=== PATIENT | female | born 1970 | race Caucasian/White ===

== ENCOUNTER 2020-05-04 09:17 | Outpatient (REF) | payer OTHER, SELFPAY ==
--- NOTE | 2020-05-04 | FL_ITS ---
EXAMINATION: FLUOROSCOPY UPPER GI WITH AIR CLINICAL INFORMATION: Preop surgical weight loss COMPARISON: None. TECHNIQUE: An upper GI examination is performed under fluoroscopic observation with digital image acquisition. The patient drank effervescent granules, thick and thin barium consistencies without difficulty. FINDINGS: The esophagus is normal in motility and morphology. Normal caliber. No hiatal hernia. No spontaneous gastroesophageal reflux. The stomach demonstrates normal motility with normal rugal folds. The duodenal bulb and proximal duodenum demonstrate no evidence of ulcer, mass lesion, or displacement. 16 IMAGES 98.650 mGy TOTAL DOSE 19.436 Gycm2 1.3 MINUTES IMPRESSION: Normal UGI. Normal esophageal and gastric motility. No hiatal hernia.
--- NOTE | 2020-05-04 | US_ITS ---
EXAMINATION: US COMPLETE ABDOMEN WITH LIVER ELASTOGRAPHY CLINICAL INFORMATION: Obesity COMPARISON: None. TECHNIQUE: Real-time imaging of the abdominal viscera. Noninvasive ultrasound liver fibrosis assessment is performed using Luli ElastPQ point quantification shear wave elastography (pSWE) with a 5 MHz transducer. Multiple elastography samples are obtained. FINDINGS: PANCREAS: Normal. ABDOMINAL AORTA: The proximal, middle, and distal aortic segments are normal in caliber. INFERIOR VENA CAVA: Visualized portions are normal. LIVER: Echotexture is increased probably representing fatty infiltration. There is a focal hypoechoic area adjacent to the gallbladder, a characteristic location of focal fatty sparing. No other focal liver lesion is seen. Liver is normal in contour. The liver is slightly enlarged. The right lobe measures 19 cm in length. The left lobe measures 13 cm in length. The main portal vein is patent with appropriate hepatopedal flow. Shear wave elastography provides a median stiffness of 1.4 m/s (reference: normal median stiffness is 0.81 - 1.22 m/s). The IQR/median stiffness to assess sampling precision is 0.1 (reference: optimal IQR/median stiffness is under 0.3). GALLBLADDER: Normal. The gallbladder is physiologically distended without evidence of stones, sludge, polyps, wall thickening or pericholecystic fluid. COMMON BILE DUCT: Normal in caliber measuring 0.3 cm in diameter. RIGHT KIDNEY: Normal. No hydronephrosis. No renal calculi or focal parenchymal lesions. The kidney measures 13 cm in maximum dimension. LEFT KIDNEY: Normal. No hydronephrosis. No renal calculi or focal parenchymal lesions. The kidney measures 13.6 cm in maximum dimension. SPLEEN: Normal. The spleen measures 11.6 cm in maximum dimension. FREE FLUID: None. IMPRESSION: 1. Impression: Enlarged echogenic liver probably representing fatty infiltration. 2. Elastography: Metavir score F2 to F3 suggestive of [id number] increased risk of developing liver fibrosis.
== END 2020-05-04 09:18 | disposition home or self-care (01) ==
LOC: HO.US 09:17
PROVIDERS: PCP Internal Medicine; Visit Provider Surgery
DX: Z01.818 Encounter for other preprocedural examination (principal); E66.01 Morbid (severe) obesity due to excess calories; K21.9 Gastro-esophageal reflux disease without esophagitis
CPT/HCPCS: 74246; 76705; 76981

== ENCOUNTER → 2020-05-06 11:29 | Outpatient (REF) | payer OTHER, SELFPAY ==
--- NOTE | 2020-05-06 11:30 | CA_ITS ---
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 The visually estimated ejection fraction is between 60-65%. - No obvious valvular pathology seen on this study. Findings Left Ventricle Normal left ventricular cavity size. There is mildly increased left ventricular wall thickness. The left ventricular systolic function is normal. The visually estimated ejection fraction is between 60-65%. There is no evidence of regional wall motion abnormalities. E/E prime ratio is between 8 and 15 consistent with indeterminate filling pressures. Evidence suggests grade I (mild) diastolic dysfunction. Right Ventricle Normal right ventricular cavity size and systolic function. Atria The left atrium is normal in size. The right atrium is normal in size. Aortic Valve There is a normal trileaflet aortic valve. There is no aortic valve stenosis. There is no aortic valve regurgitation. Mitral Valve The mitral valve appears normal. There is trace mitral valve regurgitation. There is no mitral valve stenosis. Pulmonic Valve The pulmonic valve was not well visualized. Tricuspid Valve Normal tricuspid valve structure. There is trace tricuspid valve regurgitation. The pulmonary artery systolic pressure is normal. Great Vessels The aortic annulus, sinuses of valsalva, and asc aorta are normal in size. Venous The inferior vena cava is normal in size and collapses greater than 50% with inspiration. Pericardium/Pleural There is no evidence of pericardial effusion. Prior Study Comparison No prior study available for comparison. Recommendations, Care & Conclusions No obvious valvular pathology seen on this study. Measurements 2D Linear Measurements IVSd: 1.31 0.6-0.9/0.6-1.0 cm LVIDd: 3.27 3.9-5.3/4.2-5.9 cm LVIDd Index: 1.63 2.4-3.2/2.2-3.1 cm/m2 LVIDs: 2.22 2.0-3.6 cm LVPWd: 1.25 0.7-1.1 cm Ao Root: 2.90 2.1-3.5 cm LA Diam: 3.90 2.7-3.8/3.0-4.0 cm LAIDs Index: 1.94 1.5-2.3 cm/m2 LV Mass: 169.72 67-162/88-224 g LV Mass Index: 84.44 43-95/49-115 g/m2 LVOT Diam: 2.00 3.0+(-)1.3 cm 2D Systolic Function EF 4C: 61.00 >55% EF 2C: 67.80 >55% Mitral Valve MV Pk E: 0.70 MV PK A: 0.62 MV Decel Time: 155.00 E/A: 1.10 E'Lateral: 5.03 E'Medial: 5.80 E/E' Med: 12.00 E/E' Lat: 13.90 PHT: 45.00 MVA PHT: 4.89 Decel Rapides: 4.51 Aortic Valve AoV Pk Matthew: 1.78 AoV Mn Matthew: 1.23 AoV VTI: 0.33 AoV Pk Grad: 13.00 Aov Mn Grad: 7.00 CURT Cont.VTI: 1.85 LVOT LVOT Pk Matthew: 1.08 LVOT Mn Matthew: 0.64 LVOT VTI: 0.19 LVOT Pk Grad: 5.00 LVOT Mn Grad: 2.00 LVOT Diam: 2.00 LVOT Area: 3.14 Diastolic Function MV Pk E: 0.70 MV Pk A: 0.62 E/A: 1.10 E'Medial: 5.80 E/E' Med: 12.00 E' Laterial: 5.03 E/E' Lat: 13.90 Tricuspid Valve TR Pk Matthew: 1.56 TR Pk Grad: 10.00 Great Vessels Aorta Ao Root-2D: 2.90 2.0-3.7 cm Ao Asc: 3.40 2.1-3.4 cm Pulmonary Valve PV Pk Matthew: 1.28 Peak PV Grad: 7.00 Updated in Other Vendor System with Status of Final Malik Eastman MD electronically signed on 05/08/2020 1:14:31 PM with status of Final
== END ==
LOC: HO.CARD 11:29
PROVIDERS: Visit Provider Surgery
DX: Z01.818 Encounter for other preprocedural examination (principal); I10 Essential (primary) hypertension
CPT/HCPCS: 93306

== ENCOUNTER → 2020-05-25 08:26 | Outpatient (BNVA) | payer OTHER, SELFPAY | PROVIDERS: PCP Internal Medicine; Visit Provider Surgery | DX: Z76.89 Persons encountering health services in other specified circumstances (principal) ==

== ENCOUNTER → 2020-07-01 08:01 | Outpatient (BNVA) | payer OTHER, SELFPAY | PROVIDERS: PCP Internal Medicine; Referring Provider Internal Medicine; Visit Provider Surgery | DX: Z76.89 Persons encountering health services in other specified circumstances (principal) ==

== ENCOUNTER → 2020-07-07 08:25 | Outpatient (BNVA) | payer OTHER, SELFPAY | PROVIDERS: PCP Internal Medicine; Visit Provider Dietitian, Registered | DX: Z76.89 Persons encountering health services in other specified circumstances (principal) ==

== ENCOUNTER → 2020-07-25 08:58 | Outpatient (BNVA) | payer OTHER, SELFPAY | PROVIDERS: PCP Internal Medicine; Visit Provider Surgery | DX: Z76.89 Persons encountering health services in other specified circumstances (principal) ==

== ENCOUNTER → 2020-08-02 09:09 | Outpatient (REF) | payer OTHER, SELFPAY ==
--- NOTE | 2020-08-02 09:30 | CA_ITS ---
Acquisition Time: 2020-08-02 10:24:51 Total Exercise Time: 00:06:51 Test Indications: Abnormal ECG Medications: Protocol: HALLIE Max HR: 148 BPM 86% of Pred: 172 BPM Max BP: 132/066 mmHG Max Work Load: 7.9 METS Exercise stress test using Hallie protocol, total of 6 min 51 sec. METS 7.90, TAPHR up to 86%. Patient denies any anginal symptoms. EKG without any arrhythmias, no ischemic changes seen at peak exercise or in recovery. Normotensive response to exercise. Test reviewed with Dr. Eastman. Referred By: Harshal Quintero Overread By: Augustina Alamo
== END ==
LOC: HO.CARD 09:09
PROVIDERS: Visit Provider Surgery
DX: Z01.818 Encounter for other preprocedural examination (principal); R06.02 Shortness of breath; I10 Essential (primary) hypertension
CPT/HCPCS: 93017

== ENCOUNTER → 2020-08-04 08:09 | Outpatient (BNVA) | payer OTHER, SELFPAY | PROVIDERS: PCP Internal Medicine; Visit Provider Dietitian, Registered | DX: Z76.89 Persons encountering health services in other specified circumstances (principal) ==

== ENCOUNTER → 2020-08-19 08:13 | Outpatient (BNVA) | payer OTHER, SELFPAY | PROVIDERS: PCP Internal Medicine; Visit Provider Surgery ==

== ENCOUNTER → 2020-09-01 08:15 | Outpatient (BNVA) | payer OTHER, SELFPAY | PROVIDERS: PCP Internal Medicine; Visit Provider Dietitian, Registered ==

== ENCOUNTER 2020-09-08 13:53 | Outpatient (REF) | payer OTHER, SELFPAY ==
[2020-09-08 15:25] LABS: Vitamin B12 384 pg/mL (200-900)
[2020-09-09 08:12] LABS: Lyme Abs Screen <0.90 index
== END 2020-09-08 13:54 | disposition home or self-care (01) ==
LOC: HO.LAB 13:53
PROVIDERS: PCP Internal Medicine; Visit Provider Psychiatry & Neurology Neurology
DX: G31.84 Mild cognitive impairment of uncertain or unknown etiology (principal)
CPT/HCPCS: 36415; 82607; 86618

== ENCOUNTER 2020-09-09 11:55 | Outpatient (REF) | payer OTHER, SELFPAY ==
--- NOTE | ~2020-09-09 | XR_ITS ---
EXAMINATION: XR CHEST CLINICAL INFORMATION: Morbid severe obesity due to excessive calories COMPARISON: None TECHNIQUE: 2 views of the chest were obtained. FINDINGS: No significant abnormality is noted involving the heart, lungs, mediastinum, bony thorax or soft tissues. XR/XR chest 2V IMPRESSION: Unremarkable chest examination.
[2020-09-09 12:45] LABS: MANUAL DIFF FLAG NO
[2020-09-09 12:52] LABS: Basophils Percent Auto 0.5 % (0-2); Eosinophils Absolute Auto 0.2 X10*3/uL (0.0-0.4); Eosinophils Percent Auto 2.4 % (0-4); Hematocrit 37.5 % (37-47); Hemoglobin 12.3 g/dl (12.0-16.0); Imm Gran Abs Auto 0.03 X10*3/uL (0.00-0.03); Imm Gran Pct Auto 0.5 % (0.0-0.4); Lymphocytes Absolute Auto 2.2 X10*3/uL (1.2-4.9); Lymphocytes Percent Auto 32.4 % (20-40); Mean Corpuscular HGB Conc 32.8 g/dl (31.0-35.0); Mean Corpuscular Hemoglobin 28.3 pg (27.0-33.0); Mean Corpuscular Volume 86.4 fL (80-98); Mean Platelet Volume 8.8 fL (9.4-12.3); Monocytes Absolute Auto 0.5 X10*3/uL (0.1-1.2); Monocytes Percent Auto 6.9 % (2-11); Neutrophils Absolute Auto 3.8 X10*3/uL (2.0-8.3); Neutrophils Percent Auto 57.3 % (45-73); Platelet Count 238 X10*3/uL (160-400); Red Blood Count 4.34 X10*6/uL (4.20-5.50); Red Cell Distribution Width 13.3 % (11.0-16.0); White Blood Count 6.6 X10*3/uL (4.8-10.8)
[2020-09-09 13:33] LABS: Alanine Aminotransferase 19 U/L (0-31); Albumin Level 4.4 g/dL (3.5-5.0); Alkaline Phosphatase 72 U/L (39-117); Anion Gap 13 (12-20); Aspartate Amino Transferase 14 U/L (5-31); Bilirubin Total 0.4 mg/dL (0.0-1.0); Blood Urea Nitrogen 18 mg/dL (9-16); C Reactive Protein 0.18 mg/dL (< or = 0.50); Calcium 9.5 mg/dL (8.4-10.2); Carbon Dioxide 27 mmol/L (22-29); Chloride 105 mmol/L (96-108); Cholesterol 218 mg/dL; Estimated Glomerular Filt Rate 50; Glucose Random 72 mg/dL (60-115); HDL Cholesterol 41 mg/dL; LDL Cholesterol Calculated 149 mg/dl; Potassium 4.7 mmol/L (3.3-5.1); Sodium 140 mmol/L (135-145); Total Protein 7.3 g/dL (6.5-8.0); Triglycerides 143 mg/dL
[2020-09-09 13:41] LABS: Estimated Average Glucose 192 mg/dL; Hemoglobin A1c % 8.3 %
[2020-09-09 13:57] LABS: TSH reflex Free T4 1.01 uIU/mL (0.32-4.0); Vitamin D 25-OH Total 23.1 ng/mL (>30)
[2020-09-09 14:01] LABS: Folate 14.2 ng/mL (> or = 4.0); Vitamin B12 393 pg/mL (200-900)
[2020-09-09 14:20] LABS: Ferritin 47 ng/mL (10-250)
[2020-09-10 05:57] LABS: Insulin Level Total 15.9 uIU/mL
[2020-09-12 16:47] LABS: Calcium (PTHI) 9.8 mg/dL (8.6-10.2); PTHI 65 pg/mL (14-64)
[2020-09-13 12:46] LABS: Zinc 70 mcg/dL (60-130)
[2020-09-14 21:06] LABS: Vitamin A 51 mcg/dL (38-98)
[2020-09-15 06:06] LABS: Vitamin B1 15 nmol/L (8-30)
== END 2020-09-09 11:56 | disposition home or self-care (01) ==
LOC: HO.LAB 11:55
PROVIDERS: PCP Surgery; Visit Provider Surgery
DX: E66.01 Morbid (severe) obesity due to excess calories (principal); E78.5 Hyperlipidemia, unspecified; I51.7 Cardiomegaly
CPT/HCPCS: 36415; 71046; 80053; 80061; 82306; 82607; 82728; 82746; 83036; 83525; 83970; 84425; 84443; 84590; 84630; 85025; 86140

== ENCOUNTER → 2020-09-19 08:35 | Outpatient (BNVA) | payer OTHER, SELFPAY | PROVIDERS: PCP Surgery; Visit Provider Surgery ==

== ENCOUNTER → 2020-09-22 08:20 | Outpatient (BNVA) | payer OTHER, SELFPAY | PROVIDERS: PCP Surgery; Visit Provider Dietitian, Registered ==

== ENCOUNTER → 2020-10-12 08:09 | Outpatient (BNVA) | payer OTHER, SELFPAY | PROVIDERS: Visit Provider Surgery ==

== ENCOUNTER → 2020-10-13 08:19 | Outpatient (BNVA) | payer OTHER, SELFPAY | PROVIDERS: Visit Provider Dietitian, Registered ==

== ENCOUNTER → 2020-10-31 08:09 | Outpatient (BNVA) | payer OTHER, SELFPAY | PROVIDERS: Visit Provider Surgery ==

== ENCOUNTER 2020-12-01 10:46 | Outpatient (REF) | payer OTHER, SELFPAY ==
[2020-12-01 13:21] LABS: Estimated Average Glucose 160 mg/dL; Hemoglobin A1c % 7.2 %
[2020-12-03 14:21] LABS: H Pylori Breath Test NOT DETECTED (NOT DETECTED)
== END 2020-12-01 10:47 | disposition home or self-care (01) ==
LOC: HO.LAB 10:46
PROVIDERS: Physician Assistant; Surgery; Visit Provider Dietitian, Registered
DX: E66.9 Obesity, unspecified (principal); E11.9 Type 2 diabetes mellitus without complications; Z71.3 Dietary counseling and surveillance
CPT/HCPCS: 36415; 83013; 83036; 97803; 99211

== ENCOUNTER 2020-12-13 15:57 | Outpatient (REF) | payer OTHER, SELFPAY ==
[2020-12-14 14:36] LABS: H Pylori Breath Test NOT DETECTED (NOT DETECTED)
== END 2020-12-13 15:58 | disposition home or self-care (01) ==
LOC: HO.LNP 15:57
PROVIDERS: Physician Assistant; Visit Provider Physician Assistant
DX: E66.01 Morbid (severe) obesity due to excess calories (principal)
CPT/HCPCS: 83013; 99211

== ENCOUNTER 2020-12-15 15:35 | Outpatient (REF) | payer OTHER, SELFPAY ==
[2020-12-15 16:04] LABS: Carbon Monoxide 0.4
== END 2020-12-15 15:36 | disposition home or self-care (01) ==
LOC: HO.LAB 15:35
PROVIDERS: Visit Provider Surgery
DX: F17.200 Nicotine dependence, unspecified, uncomplicated (principal)
CPT/HCPCS: 36415

== ENCOUNTER 2020-12-19 16:11 | Outpatient (REF) | payer OTHER, SELFPAY ==
[2020-12-19 16:43] LABS: Carbon Monoxide Refer to POC result
[2020-12-19 17:01] LABS: Carbon Monoxide POC 0.7 %
[2020-12-19 18:29] LABS: Iron 38 mcg/dL (30-160); Percent Iron Saturation 11 % (15-50); Total Iron Binding Capacity 345 mcg/dL (228-428); Unsaturated Iron Binding 307 ug/dL
== END 2020-12-19 16:12 | disposition home or self-care (01) ==
LOC: HO.LAB 16:11
PROVIDERS: Absent Provider Physician Assistant; PCP Internal Medicine; Visit Provider Surgery
DX: F17.200 Nicotine dependence, unspecified, uncomplicated (principal)
CPT/HCPCS: 36415; 83540

== ENCOUNTER → 2020-12-22 13:27 | Outpatient (BNVA) | payer OTHER, SELFPAY | PROVIDERS: PCP Internal Medicine; Visit Provider Surgery ==

== ENCOUNTER → 2020-12-23 08:46 | Outpatient (BNVA) | payer OTHER, SELFPAY | PROVIDERS: PCP Internal Medicine; Visit Provider Physician Assistant | DX: Z13.89 Encounter for screening for other disorder (principal) | CPT/HCPCS: 93005 ==

== ENCOUNTER 2020-12-27 06:15 | Inpatient (IN) | payer OTHER, SELFPAY ==
--- NOTE | 2020-12-23 08:25 | ECG_ITS ---
Test Reason : MORBID OBESITY Blood Pressure : / mmHG Vent. Rate : 069 BPM Atrial Rate : 069 BPM P-R Int : 196 ms QRS Dur : 080 ms QT Int : 414 ms P-R-T Axes : 047 -20 057 degrees QTc Int : 443 ms Normal sinus rhythm Normal ECG No previous ECGs available Referred By: Harshal Quintero Electronically Signed By:NATHALIE NESS
--- NOTE | 2020-12-23 09:33 | HO.ANESPROP2 ---
Documented by User: Manasa Marieney 12/30/20 15:49 HPI - Anesthesia Eval Consult details Narrative: 50yo F for Gastrectomy Sleeve PMFSH Active Problems Active Problems: All Active Problems (Updated 09/19/20 @ 11:12 by Harshal Quintero MD) BMI 37.0-37.9, adult (Acute) Obesity (Acute) Diabetes (Acute) Constipation (Acute) Vitamin B12 deficiency (Acute) Vitamin D deficiency (Acute) Abnormal echocardiogram (Acute) Left ventricular hypertrophy (Acute) Depression (Acute) Hyperlipidemia (Acute) Sleep apnea with use of continuous positive airway pressure (CPAP) (Acute) Non-insulin dependent diabetes mellitus (Acute) Hypotension (Acute) Morbid obesity (Acute) Past Medical History Medical History Abnormal echocardiogram Constipation Depression Diabetes Hyperlipidemia Hypotension Insomnia Liver fibrosis Non-insulin dependent diabetes mellitus Sleep apnea with use of continuous positive airway pressure (CPAP) Steatosis, liver Vitamin B12 deficiency Vitamin D deficiency Family History Family History Father DM (diabetes mellitus) Mother No problems noted. Sister No problems noted. Sister No problems noted. Sister No problems noted. Sister No problems noted. Sister No problems noted. Sister No problems noted. Family history of problems with anesthesia: No Surgical History Surgical History History of wisdom tooth extraction, class II edentulism Hx of carpal tunnel repair Morbid obesity S/P section History of Problems with Anesthesia: No Social History Social History Household Members: Children Housing: House Are you a primary child caregiver to a significant other at home: No (daughter 16 yrs old) Do you presently have visiting nurse or other home services: No Alcohol intake: unknown Patient Tobacco Use Status: Former Tobacco user Quit Date: 11/23 Tobacco use type: Cigarette Cigarettes Per Day: 5 Narrative Narrative: No recent illness >4 mets with regular exercise Meds Allergies Allergy/AdvReac Type Severity Reaction Status Date / Time No Known Allergies Allergy Verified 12/23/20 11:21 Home Medications Medication Instructions Recorded Confirmed Last Taken Type aspirin 81 mg tablet,delayed 81 mg PO DAILY 05/02/20 05/02/20 Unknown History release hydrochlorothiazide 25 mg tablet 25 mg PO DAILY 05/02/20 05/02/20 Unknown History liraglutide 0.6 mg/0.1 mL (18 mg/3 1.2 mg SUBCUT DAILY 05/02/20 05/02/20 Unknown History mL) subcutaneous pen injector metformin 1,000 mg tablet 1,000 mg PO DAILY 05/02/20 05/02/20 Unknown History quetiapine 1 tab PO BEDTIME 12/23/20 12/23/20 Unknown History sertraline 100 mg PO DAILY 12/23/20 12/23/20 Unknown History trazodone 2 tab PO BEDTIME 12/23/20 12/23/20 Unknown History Exam Exam Date and Time: December 23, 2020 8229 Pertinent Lab Results Pertinent Lab Results: Lab Results 12/23/20 12/23/20 12/23/20 Range/Units 08:30 08:30 08:30 WBC 7.4 (4.8-10.8) X10*3/uL RBC 4.19 L (4.20-5.50) X10*6/uL Hgb 12.2 (12.0-16.0) g/dl Hct 36.3 L (37-47) % MCV 86.6 (80-98) fL MCH 29.1 (27.0-33.0) pg MCHC 33.6 (31.0-35.0) g/dl RDW 12.9 (11.0-16.0) % Plt Count 270 (160-400) X10*3/uL MPV 9.2 L (9.4-12.3) fL Immature Gran % (Auto) 0.3 (0.0-0.4) % Neut % (Auto) 60.7 (45-73) % Lymph % (Auto) 29.0 (20-40) % [place] % (Auto) 7.3 (2-11) % Eos % (Auto) 2.4 (0-4) % Baso % (Auto) 0.3 (0-2) % Lymph # (Auto) 2.1 (1.2-4.9) X10*3/uL [place] # (Auto) 0.5 (0.1-1.2) X10*3/uL Eos # (Auto) 0.2 (0.0-0.4) X10*3/uL Baso # (Auto) 0.0 (0.0-0.2) X10*3/uL Abs Immat Gran (auto) 0.02 (0.00-0.03) X10*3/uL Absolute Neuts (auto) 4.5 (2.0-8.3) X10*3/uL Absolute Nucleated RBC 0.000 (0.0-0.012) X10*3/uL Nucleated RBC % (auto) 0.0 (0.0-0.2) /100WBC PT 12.8 (10.8-13.0) SEC INR 1.1 (0.9-1.1) APTT 31.2 (24.1-38.0) SEC Sodium 140 (135-145) mmol/L Potassium 3.8 (3.3-5.1) mmol/L Chloride 101 (96-108) mmol/L Carbon Dioxide 30 H (22-29) mmol/L Anion Gap 13 (12-20) BUN 19 H (9-16) mg/dL Creatinine 1.00 (0.5-1.4) mg/dL Estim Creat Clear Calc TNP Estimated GFR 59 Random Glucose 137 H D (60-115) mg/dL Estimat Average Glucose mg/dL Hemoglobin A1c % % Calcium 9.9 (8.4-10.2) mg/dL Total Bilirubin 0.4 (0.0-1.0) mg/dL AST 14 (5-31) U/L ALT 19 (0-31) U/L Alkaline Phosphatase 75 (39-117) U/L C-Reactive Protein 0.22 (< or = 0.50) mg/dL Total Protein 7.5 (6.5-8.0) g/dL Albumin 4.6 (3.5-5.0) g/dL Triglycerides 102 mg/dL Cholesterol 153 D mg/dL LDL Cholesterol, Calc 89 mg/dl HDL Cholesterol 44 mg/dL TSH 1.11 (0.32-4.0) uIU/mL 12/23/20 Range/Units 08:30 WBC (4.8-10.8) X10*3/uL RBC (4.20-5.50) X10*6/uL Hgb (12.0-16.0) g/dl Hct (37-47) % MCV (80-98) fL MCH (27.0-33.0) pg MCHC (31.0-35.0) g/dl RDW (11.0-16.0) % Plt Count (160-400) X10*3/uL MPV (9.4-12.3) fL Immature Gran % (Auto) (0.0-0.4) % Neut % (Auto) (45-73) % Lymph % (Auto) (20-40) % [place] % (Auto) (2-11) % Eos % (Auto) (0-4) % Baso % (Auto) (0-2) % Lymph # (Auto) (1.2-4.9) X10*3/uL [place] # (Auto) (0.1-1.2) X10*3/uL Eos # (Auto) (0.0-0.4) X10*3/uL Baso # (Auto) (0.0-0.2) X10*3/uL Abs Immat Gran (auto) (0.00-0.03) X10*3/uL Absolute Neuts (auto) (2.0-8.3) X10*3/uL Absolute Nucleated RBC (0.0-0.012) X10*3/uL Nucleated RBC % (auto) (0.0-0.2) /100WBC PT (10.8-13.0) SEC INR (0.9-1.1) APTT (24.1-38.0) SEC Sodium (135-145) mmol/L Potassium (3.3-5.1) mmol/L Chloride (96-108) mmol/L Carbon Dioxide (22-29) mmol/L Anion Gap (12-20) BUN (9-16) mg/dL Creatinine (0.5-1.4) mg/dL Estim Creat Clear Calc Estimated GFR Random Glucose (60-115) mg/dL Estimat Average Glucose 154 mg/dL Hemoglobin A1c % 7.0 % Calcium (8.4-10.2) mg/dL Total Bilirubin (0.0-1.0) mg/dL AST (5-31) U/L ALT (0-31) U/L Alkaline Phosphatase (39-117) U/L C-Reactive Protein (< or = 0.50) mg/dL Total Protein (6.5-8.0) g/dL Albumin (3.5-5.0) g/dL Triglycerides mg/dL Cholesterol mg/dL LDL Cholesterol, Calc mg/dl HDL Cholesterol mg/dL TSH (0.32-4.0) uIU/mL Narrative Narrative: EKG 11/2020 (DRAFT) Vent. Rate : 069 BPM Atrial Rate : 069 BPM P-R Int : 196 ms QRS Dur : 080 ms QT Int : 414 ms P-R-T Axes : 047 -20 057 degrees QTc Int : 443 ms Normal sinus rhythm Normal ECG Echo 04/2020 Conclusions: - The left ventricular systolic function is normal. The visually estimated ejection fraction is between 60-65%. - No obvious valvular pathology seen on this study. Exercise stress 07/2020 Exercise stress test using Aneudy protocol, total of 6 min 51 sec. METS 7.90, TAPHR up to 86%. Patient denies any anginal symptoms. EKG without any arrhythmias, no ischemic changes seen at peak exercise or in recovery. Normotensive response to exercise. Test reviewed with Dr. Eastman. Airway Mallampati Class: II TM Dist: >3cm Neck ROM: Full Loose/Missing/Broken Teeth: No Heart: RRR Lungs: CTAB Assessment and Plan Assessment Anesthesia Assessment: Anesthesia Plan Discussed, Smoking Cess. Discussed (Quit 11/23/20) and PAT Visit Documented by User: Marc Guevara MD 01/02/21 13:26 [facility] Past Medical History Medical History Abnormal echocardiogram Constipation Depression Diabetes Hyperlipidemia Hypotension Insomnia Liver fibrosis Non-insulin dependent diabetes mellitus Sleep apnea with use of continuous positive airway pressure (CPAP) Steatosis, liver Vitamin B12 deficiency Vitamin D deficiency Family History Family History Father DM (diabetes mellitus) Mother No problems noted. Sister No problems noted. Sister No problems noted. Sister No problems noted. Sister No problems noted. Sister No problems noted. Sister No problems noted. Surgical History Surgical History History of wisdom tooth extraction, class II edentulism Hx of carpal tunnel repair Morbid obesity S/P section Social History Social History Household Members: Children Housing: House Are you a primary child caregiver to a significant other at home: No (daughter 16 yrs old) Do you presently have visiting nurse or other home services: No Alcohol intake: unknown Patient Tobacco Use Status: Former Tobacco user Quit Date: 11/23 Tobacco use type: Cigarette Cigarettes Per Day: 5 Meds Allergies Allergy/AdvReac Type Severity Reaction Status Date / Time No Known Allergies Allergy Verified 12/23/20 11:21 Home Medications Medication Instructions Recorded Confirmed Last Taken Type aspirin 81 mg tablet,delayed 81 mg PO DAILY 05/02/20 05/02/20 Unknown History release hydrochlorothiazide 25 mg tablet 25 mg PO DAILY 05/02/20 05/02/20 Unknown History liraglutide 0.6 mg/0.1 mL (18 mg/3 1.2 mg SUBCUT DAILY 05/02/20 05/02/20 Unknown History mL) subcutaneous pen injector metformin 1,000 mg tablet 1,000 mg PO DAILY 05/02/20 05/02/20 Unknown History quetiapine 1 tab PO BEDTIME 12/23/20 12/23/20 Unknown History sertraline 100 mg PO DAILY 12/23/20 12/23/20 Unknown History trazodone 2 tab PO BEDTIME 12/23/20 12/23/20 Unknown History Assessment and Plan Assessment Anesthesia Assessment: Anesthesia Plan Discussed and Chart Reviewed Final Anesthetic Review NPO: Yes ASA Class: III Final Preanesthetic Review: No Changes in Pt Med Stat, Meds/Allgs Chart Reviewed, Consent Obtained/Reviewed and Anes Risks/Benef Reviewed Patient Risk: High Procedure Risk: Intermediate Anesthetic Plan Anesthetic Plan: GA Disposition: Standard PACU
[2020-12-23 09:34] LABS: MANUAL DIFF FLAG NO
[2020-12-23 09:46] LABS: Basophils Percent Auto 0.3 % (0-2); Eosinophils Absolute Auto 0.2 X10*3/uL (0.0-0.4); Eosinophils Percent Auto 2.4 % (0-4); Hematocrit 36.3 % (37-47); Hemoglobin 12.2 g/dl (12.0-16.0); Imm Gran Abs Auto 0.02 X10*3/uL (0.00-0.03); Imm Gran Pct Auto 0.3 % (0.0-0.4); Lymphocytes Absolute Auto 2.1 X10*3/uL (1.2-4.9); Mean Corpuscular HGB Conc 33.6 g/dl (31.0-35.0); Mean Corpuscular Hemoglobin 29.1 pg (27.0-33.0); Mean Corpuscular Volume 86.6 fL (80-98); Mean Platelet Volume 9.2 fL (9.4-12.3); Monocytes Absolute Auto 0.5 X10*3/uL (0.1-1.2); Monocytes Percent Auto 7.3 % (2-11); Neutrophils Absolute Auto 4.5 X10*3/uL (2.0-8.3); Neutrophils Percent Auto 60.7 % (45-73); Platelet Count 270 X10*3/uL (160-400); Red Blood Count 4.19 X10*6/uL (4.20-5.50); Red Cell Distribution Width 12.9 % (11.0-16.0); White Blood Count 7.4 X10*3/uL (4.8-10.8)
[2020-12-23 09:56] LABS: INTERNATIONAL NORM RATIO 1.1 (0.9-1.1); Prothrombin Time 12.8 SEC (10.8-13.0)
[2020-12-23 09:58] LABS: Alanine Aminotransferase 19 U/L (0-31); Albumin Level 4.6 g/dL (3.5-5.0); Alkaline Phosphatase 75 U/L (39-117); Anion Gap 13 (12-20); Aspartate Amino Transferase 14 U/L (5-31); Bilirubin Total 0.4 mg/dL (0.0-1.0); Blood Urea Nitrogen 19 mg/dL (9-16); C Reactive Protein 0.22 mg/dL (< or = 0.50); Calcium 9.9 mg/dL (8.4-10.2); Carbon Dioxide 30 mmol/L (22-29); Chloride 101 mmol/L (96-108); Cholesterol 153 mg/dL; Estimated Glomerular Filt Rate 59; Glucose Random 137 mg/dL (60-115); HDL Cholesterol 44 mg/dL; LDL Cholesterol Calculated 89 mg/dl; Partial Thromboplastin Time 31.2 SEC (24.1-38.0); Potassium 3.8 mmol/L (3.3-5.1); Sodium 140 mmol/L (135-145); Total Protein 7.5 g/dL (6.5-8.0); Triglycerides 102 mg/dL
[2020-12-23 10:20] LABS: TSH reflex Free T4 1.11 uIU/mL (0.32-4.0)
[2020-12-23 10:29] LABS: Estimated Average Glucose 154 mg/dL
[2020-12-23 11:21] VITALS: BP 126/73; PULSE 78; RESP 16; O2SAT 98; BMI 38.9
[2020-12-24 09:25] LABS: Insulin Level Total 17.1 uIU/mL
--- NOTE | 2020-12-26 20:41 | MHC.SHP ---
Pre-Procedural Eval Section A The patient is an INPATIENT: Yes The History & Physical has been completed within 30 days and I have reviewed it.: Yes Section B Chief Complaint: Obesity,preop lab,ekg Details of Present Illness: Obesity Relevant Family History (Specify if Yes): No Relevant Social History: None Present Medications: see Short Stay Collaborative assessment Medical History: No relevant PMH History of Previous Operations: No relevant previous surgery Allergies: Allergies Allergy/AdvReac Type Severity Reaction Status Date / Time No Known Allergies Allergy Verified 12/23/20 11:21 Review of Systems Sugical H&P ROS: Negative: Constitution, Cardiovascular, Respiratory, Neurological, Psychiatric, Hem-Onc, Allergic/Immunologic, Gastrointestinal, Genitourinary, Musculoskeletal, Integumentary, Endocrine and Eyes/Ears/Nose/Throat Exam Surgical H&P Exam: Normal: HEENT, Normal: Heart, Normal: Lungs, Normal: Extremities, Normal: Abdomen, Normal: Skin and Normal: Neurological Plan Diagnosis/Plan: Unchanged I have reviewed the history and physical and performed a pertinent physical examination on my patient. No changes have occurred unless specified.
[2020-12-27] VITALS (12 sets, daily range): BP systolic 117–152; BP diastolic 59–90; PULSE 75–85; RESP 14–18; TEMP 35.5–36.8; O2SAT 95–999
[2020-12-27 06:31] LABS: Glucose, Whole Blood 122 mg/dL (60-115)
[2020-12-27 06:47] LABS: UPreg QC Valid YES; Urine Pregnancy NEGATIVE (NEGATIVE)
[2020-12-27 06:55] LABS: COVID-19 Test Negative (Negative); IDNOW Serial# 9DD0AD1C
[2020-12-27] MEDS: Lactated Ringers 1,000 ML 100 ML IVCONT (06:59)
[2020-12-27] MEDS: Lactated Ringers 1,000 ML 999 ML IV (07:01)
--- NOTE | 2020-12-27 10:45 | PM.OP ---
Brief Operative Note Date of Service: 12/27/20 Pre-op diagnosis: Severe obesity with comorbidities (see below) Post-op diagnosis: same (& extensive congenital abdominal adhesions) Procedure: INITIAL PATIENT BMI ON PRESENTATION AT OUR OFFICE: 43 kg/m2 LAST BMI BEFORE SURGERY: 37.8 kg/m2 COMORBIDITIES: sleep apnea on CPAP, hypertension, non-insulin dependent diabetes, hyperlipidemia, insomnia, depression, liver steatosis, liver fibrosis, LVH The patient participated in an intensive weekly lifestyle intervention and exercise program during which the patient has lost between the initial office visit and the last preoperative visit 29.9lbs, or 12.68% of initial actual body weight. The patient met the BMI-criteria for bariatric surgery based on the BMI on initial presentation. The patient should not be penalized for achieving such weight loss because it is not sustainable long-term without surgical intervention and it was achieved in preparation for bariatric surgery under my direction and based on my published research ([email or web address] and [email or web address]) that a 10% preoperative weight loss improves long-term weight loss after surgery and reduces perioperative complications. Insurance carriers such as [employer] have endorsed my recommendations and have included in their policies criteria to include a 10% preoperative weight loss requirement. PROCEDURE: Esophago-gastroscopy, laparoscopic repair of incarcerated diaphragmatic hernia, laparoscopic lysis of adhesions, laparoscopic sleeve gastrectomy and laparoscopic gastropexy INDICATIONS: This is a 50 year-old female who was electively scheduled for laparoscopic, possibly open sleeve gastrectomy. The risks and complications of the procedure were discussed with the patient in advance, particularly the possibility of ; pulmonary embolism; staple line leak; bleeding; GERD; cardiac, pulmonary, or renal complications; as well as long-term problems such as insufficient weight loss, vitamin deficiency, strictures, or ulcers. The patient understood all the risks, and was in agreement to proceed with surgery. DESCRIPTION OF PROCEDURE: After informed consent was obtained from the patient, the patient was given preoperative antibiotics, and was transferred to the operating room. After successful induction of general anesthesia, pneumatic compressive devices were placed on both lower extremities. An upper endoscopy was performed next. The oropharynx and esophagus appeared to be within normal limits. There was no diaphragmatic hernia present consistent with the findings of the preoperative upper GI. The stomach was entered. Then after all fluid and air were suctioned and the stomach was fully decompressed, the scope was withdrawn and secured in the mid esophagus. The patient was then prepped and draped in the usual sterile manner, and abdominal access was established at the right upper quadrant with the Chen technique. A 12 mm blunt port was inserted, and the abdomen was insufflated with CO2 to a pressure of 15 mmHg. Under direct visualization, additional ports were placed, specifically two 5 mm Versi-step ports to the left upper quadrant, and a 5 mm Versi-Step port to the right upper quadrant. 1% lidocaine plan was used to infiltrate all port sites as well as all fascia defects. Following that, the patient was placed in a steep reverse Trendelenburg position. An additional 5 mm port was placed to the right flank for the Mediflex retractor that was used to retract the left lobe of the liver. The gastro-esophageal fat pad was opened with the ultrasonic device (Thunderbeat, Olympus) and the anterior esophagus and hiatus were exposed. The angle of His was opened with the ultrasonic device the fundus of the stomach from any diaphragmatic and splenic attachments. I then opened the gastrocolic ligament between the transverse colon and the greater curvature of the stomach with the ultrasonic device to enter the lesser sac and facilitate the ligation of the short gastric vessels. I started at a mid-point along the greater curvature and using the Thunderbeat, all short gastric vessels were divided all the way to the angle of His until the left michaela was completely dissected at its entirety. I then divided the gastro-colic ligament distally to a distance of about 3-4 cm proximal to the esophagus. There were extensive congenital adhesions between the pancreas and posterior gastric wall. Those were lysed completely with the ultrasonic device. Adhesiolysis took approximately 45 min to complete. As a result the case was significantly prolonged with a total operative time of 2.5 hours. The stomach was then divided transversely with two Endo SINGH-45 purple and five SINGH-60 articulating purple loads using the [employer] stapler and loads. Every effort was made that the gastric sleeve had a tubular shape and an even caliber throughout. Once the sleeve resection was completed, the staple line of the gastric sleeve was reinforced with Hemoclips. The resected stomach was retrieved without difficulty from the Chen port. A gastropexy was then performed in order to prevent postoperative GERD and partial gastric volvulus. Several interrupted 2.0 Surgidac sutures were placed between the sleeve's staple line and the previously divided greater omentum and gastro-colic ligament using the Endo-Stitch device. An upper endoscopy was performed. There was no narrowing at the GE junction. The scope was easily advanced all the way to the pylorus which was clearly visualized. There was no narrowing anywhere and the sleeve's caliber was even throughout. The sleeve's staple line was inspected and there was no evidence of ischemia, bleeding or dehiscence. At that point the gastroscope was withdrawn from the patient?s mouth while we were decompressing the bowel and the stomach from any remaining air. I looked into the lesser sac to see how the sleeve was situating and it was situating well. There was no bleeding from the staple line, spleen, or short gastric vessels. The Mediflex retractor was removed, and the undersurface of the liver was inspected and there was no bleeding. The patient was placed in supine position. I closed the fascial defect of the 12 mm port site with a figure of eight #1 Polysorb suture. Then 100 cc 0.25 % Marcaine plain with 10 mg of Dexamethasone were used to infiltrate the fascial closure as well as all skin incisions. At this point, the abdomen was deflated, all ports were removed under direct vision, and no bleeding was noted from any of the port sites. The skin incisions were irrigated with saline and were closed with 4-0 absorbable monofilament sutures. Steri-Strips and OpSites were used to cover all incisions. The patient was extubated and was transferred in stable condition to the recovery room for further care. I was present and performed all newman parts of the procedure. Ms. Villason was the pediatric dental assistant. There were no residents to assist with this case. Mata Quintero MD, PhD, FACS Surgeon: Harshal Quintero MD Anesthesia: GETA, local and other (TAP block) Was an Wood Mechanist used for this Procedure?: Yes Wood Mechanist: Tarsha Thornton Estimated blood loss (mL): 10 IV fluids (mL): 3,000 Urine output (mL): 0 (No Saleh to record) Pathology: other (Stomach) Condition: stable Disposition: PACU
--- NOTE | 2020-12-27 10:49 | P.DS_ITS ---
DS: Providers Provider Date of Service: 12/28/20 Date of admission: 12/27/20 06:15 Primary care physician: Shweta Villa MD DS: Medications Discharge Medications Home Medications: Home Medications Medication Instructions Recorded Confirmed aspirin 81 mg tablet,delayed 81 mg PO DAILY 05/02/20 05/02/20 release hydrochlorothiazide 25 mg tablet 25 mg PO DAILY 05/02/20 05/02/20 liraglutide 0.6 mg/0.1 mL (18 mg/3 1.2 mg SUBCUT DAILY 05/02/20 05/02/20 mL) subcutaneous pen injector metformin 1,000 mg tablet 1,000 mg PO DAILY 05/02/20 05/02/20 quetiapine 1 tab PO BEDTIME 12/23/20 12/23/20 sertraline 100 mg PO DAILY 12/23/20 12/23/20 trazodone 2 tab PO BEDTIME 12/23/20 12/23/20 Previous Rx's Medication Instructions Recorded cholecalciferol (vitamin D3) 125 125 mcg PO DAILY #30 cap 09/19/20 mcg (5,000 unit) capsule mecobalamin (vitamin B12) 1,000 1,000 mcg SUBLINGUAL DAILY #30 tab 09/19/20 mcg disintegrating tablet,sublingual docusate sodium 100 mg capsule 100 mg PO DAILY #30 cap 10/12/20 phentermine 37.5 mg capsule 37.5 mg PO DAILY #30 cap 10/16/20 ondansetron HCl 4 mg tablet 4 mg PO Q12H #20 tab 12/22/20 pantoprazole 40 mg tablet,delayed 40 mg PO DAILY #30 tab 12/22/20 release polyethylene glycol 3350 17 gram 17 g PO DAILY #14 ea 12/22/20 oral powder packet sucralfate 100 mg/mL oral 10 ml PO BID #400 ml 12/22/20 suspension DS: Summary Time Spent with Patient Time attestation: ADMITTING DIAGNOSIS: morbid obesity, MARIBEL, NIDDM, hyperlipidemia, depression DISCHARGE DIAGNOSIS: same, s/p laparoscopic sleeve gastrectomy PAST SURGICAL HISTORY: section PROCEDURE: upper endoscopy, laparoscopic sleeve gastrectomy DISCHARGE SUMMARY: History of Present Illness: The patient is a 50 year-old woman with a BMI of 42.6 kg/m2 and associated co- morbidities as described above. The patient had extensive work-up,lost 28.8 lbs preoperatively and was electively scheduled for laparoscopic, possible open sle jay jay gastrectomy and gastropexy. Risks and complications of the surgery were discussed with the patient in advance, particularly the possibility of , pulmonary embolism, anastomotic leak, bleeding, bowel injury, GERD, cardiac, renal or pulmonary complications. The patient understood all the risks and was in agreement with the surgical plan. Hospital Course: The patient underwent an uneventful laparoscopic sleeve gastrectomy with gastropexy on the day of admission. Postoperatively, the patient was transferred to the surgical floor. The patient was on IV Acetaminophen and IV dilaudid for p ain control. Patient was started on bariatric phase 1 diet POD #0. On postoperative day one, the patient was feeling well without nausea, vomiting, fevers, or tachycardia. The patient had some mild incisional pain. The abdomen was soft. On the morning of postoperative day one, the patient was continued on 1 ounce of water or ice every half hour. During the first day, the patient did fairly well, having some incisional pain, but able to ambulate adequately and to tolerate liquids well. Since the patient is doing well, we decided that the patient was ready to be discharged. The patient was given instructions to follow-up with me next week and to call my office for any fever over 101, persistent abdominal pain, nausea, vomiting, GERD, symptoms of DVT such as calf tenderness, or leg swelling, or pulmonary embolism such as chest pain or shortness of breath. The patient was also instructed to drink 40-60 ounces of liquids per day using the 1-ounce cups. The patient was given prescription for Tylenol for pain, Zofran prn for nausea, and pantoprazole and carafate. The patient was encouraged to ambulate and use the incentive spirometer. The patient was allowed to shower, but no baths, and encouraged to stay active at home. All of these instructions were given to the patient personally. All questions were answered and the patient understood all instructions, the instructions were also given to the patient in print. Total time spent providing and/or coordinating discharge services: 15 Discharge coordination time: Less than 30 minutes Quality: Stroke Does the patient have a stroke diagnosis?: No Physical Exam Vital Signs: Vital Signs: Last Vital Signs Temp 97.9 F 12/27/20 10:43 Pulse 79 12/27/20 10:48 Resp 14 12/27/20 10:48 BP 149/85 H 12/27/20 10:48 Pulse Ox 100 12/27/20 10:48 Body Mass Index 38.9 DS: Data Data Completed and Pending Pending studies at discharge: Pending at discharge 12/27/20 09:53 Surgical [PTH] Routine Labs on day of discharge: Laboratory Results - last 24 hr 12/27/20 12/27/20 12/27/20 06:15 06:25 06:27 POC Glucose 122 H Urine Test NEGATIVE COVID-19 ([facility]IRA) Negative COVID-19 Clin Com See Note Discharge Plan Discharge Anticipated Discharge Date/Time: 12/28/20 11:44 Patient Disposition: Home, Self-Care Discharge Diagnosis: POD #1 s/p sleeve gastrectomy Referrals: Shweta Villa MD [Primary Care Provider] - 1 Week Discharge Medications: Continued sertraline 100 mg Tablet 100 mg PO DAILY RF: 0 trazodone 100 mg tablet 2 tab PO BEDTIME RF: 0 quetiapine 400 mg tablet 1 tab PO BEDTIME RF: 0 docusate sodium [Colace] 100 mg capsule 100 mg PO DAILY Qty: 30 RF: 2 pantoprazole 40 mg tablet,delayed release (DR/EC) 40 mg PO DAILY Qty: 30 RF: 2 sucralfate 100 mg/mL suspension 10 ml PO BID Qty: 400 RF: 2 ondansetron HCl [Zofran] 4 mg tablet 4 mg PO Q12H Qty: 20 RF: 0 Held metformin 1,000 mg tablet 1,000 mg PO DAILY RF: 0 Hold Instructions: Discuss restart date with Dr Quintero Victocarmen 2-Chaz 0.6 mg/0.1 mL (18 mg/3 mL) pen injector 1.2 mg subcut DAILY RF: 0 Hold Instructions: Discuss restart date with Dr Quintero hydrochlorothiazide 25 mg tablet 25 mg PO DAILY RF: 0 Hold Instructions: Discuss when to restart with Dr Quintero aspirin 81 mg tablet,delayed release (DR/EC) 81 mg PO DAILY RF: 0 Hold Instructions: Discuss when to restart with Dr Quintero Discontinued phentermine 37.5 mg capsule 37.5 mg PO DAILY Qty: 30 RF: 0 cholecalciferol (vitamin D3) 125 mcg (5,000 unit) capsule 125 mcg PO DAILY Qty: 30 RF: 2 mecobalamin (vitamin B12) 1,000 mcg tablet,disintegrating 1,000 mcg sublingual DAILY Qty: 30 RF: 2 polyethylene glycol 3350 [Miralax] 17 gram powder in packet 17 g PO DAILY Qty: 14 RF: 0 Discharge Orders: Discharge Order (Routine); Ordered 12/28/20 Ordered By: Harshal Quintero Diet: other Activity on Discharge: No heavy lifting Stand Alone Forms: Patient Portal Discharge page Activity Restrictions/Additional Instructions: No tub baths, sex or returning to work until discussed at first post op appointment. No exercise, alcohol, tobacco or illegal drug use. Continue to use incentive spirometer hourly while awake. Walk in home for 5- 10 minutes every 2 hours during the first week. Continue phase 1 diet today and start phase 2 diet tomorrow morning. Follow all instructions in the bariatric handbook and call with any questions. Care Plan Goals: weight loss Health Concerns: morbid obesity Plan of Treatment: see discharge instructions Assessment: stable, s/p sleeve gastrectomy Discharge Date/Time: 12/28/20 08:50
--- NOTE | 2020-12-27 10:50 | PM.PNGS ---
Subjective Subjective Date of Service: 12/28/20 Interval history: Patient has mild incisional pain. Was able to ambulate and use the incentive spirometer. She is tolerating phase 1 bariatric diet. Physical Exam Vital Signs: Vital Signs: Last Vital Signs Temp 97.9 F 12/27/20 10:43 Pulse 79 12/27/20 10:48 Resp 14 12/27/20 10:48 BP 149/85 H 12/27/20 10:48 Pulse Ox 100 12/27/20 10:48 Body Mass Index 38.9 GI: Inspection: Yes normal to inspection and Yes incision (clean, dry and intact) Extrem: Right lower extremity: normal to inspection (no calf tenderness) Left lower extremity: normal to inspection (no calf tenderness) Progress Note: A&P Assessment and plan (1) S/P laparoscopic sleeve gastrectomy: Status: Acute Assessment and Plan: s/p sleeve gastrectomy and gastropexy Doing well and tolerating phase 1 bariatric diet. Check am labs. If OK, will d/c home today (2) Obesity: Status: Acute (3) BMI 37.0-37.9, adult: Status: Acute (4) Hypotension: Status: Acute (5) Non-insulin dependent diabetes mellitus: Status: Acute (6) Sleep apnea with use of continuous positive airway pressure (CPAP): Status: Acute (7) Hyperlipidemia: Status: Acute (8) Depression: Status: Acute (9) Steatosis, liver: Status: Acute (10) Liver fibrosis: Status: Acute (11) Congenital intra-abdominal adhesions: Status: Acute (12) Insomnia: Status: Acute (13) Left ventricular hypertrophy: Status: Acute Fall Risk Details Current Medications: Current Medications Generic Name Dose Route Start Last Admin Trade Name Freq PRN Reason Stop Dose Admin Cefazolin Sodium/Dextrose 2 gm in 50 mls @ 100 mls/hr 12/27/20 04:00 Ancef IV 12/27/20 23:00 PREOP JHONATHAN Lactated Ringer's 1,000 mls @ 100 mls/hr 12/27/20 05:45 12/27/20 06:59 Lr IVCONT 100 mls/hr .Q10H JHONATHAN Administration Time Spent With Patient Time: Total time spent is greater than 50% in coordination of care (as documented) at patient's floor/unit and/or counseling patient: Time with patient: less than 15 minutes Procedures Date of Service Date of Service: 12/28/20
[2020-12-27 11:17] LABS: Hematocrit 32.7 % (37-47); Hemoglobin 11.2 g/dl (12.0-16.0)
[2020-12-27] MEDS: ondansetron HCL 4 MG/2 ML VIAL IVPUSH ×2 (12:44→20:30)
[2020-12-27] MEDS: Famotidine/PF 20 MG/2 ML VIAL IVPUSH ×2 (12:45→20:30)
[2020-12-27] MEDS: Lactated Ringers 1,000 ML 125 ML IVCONT ×2 (12:45→20:31)
[2020-12-27] MEDS: ceFAZolin Sodium/Dextrose,Iso 2 GM/50 ML PIGGYBACK IV (14:13)
[2020-12-27] MEDS: HYDROmorphone HCl 0.5 MG/0.5 ML SYRINGE 0.25 MG IVPUSH ×2 (16:18→20:30)
[2020-12-27] MEDS: 0.9 % Sodium Chloride Flush 3 ML SYRINGE IVFLUSH ×2 (16:18→20:31)
[2020-12-27] MEDS: QUEtiapine Fumarate 400 MG TABLET PO (20:29)
[2020-12-28 03:07] VITALS: BP 126/80; PULSE 73; RESP 16; TEMP 36.3; O2SAT 97
[2020-12-28] MEDS: ondansetron HCL 4 MG/2 ML VIAL IVPUSH (04:23)
[2020-12-28] MEDS: Lactated Ringers 1,000 ML 125 ML IVCONT (04:23)
[2020-12-28 05:51] LABS: MANUAL DIFF FLAG NO
[2020-12-28 05:58] LABS: Eosinophils Percent Auto 0.1 % (0-4); Hematocrit 31.2 % (37-47); Hemoglobin 10.8 g/dl (12.0-16.0); Imm Gran Abs Auto 0.04 X10*3/uL (0.00-0.03); Imm Gran Pct Auto 0.5 % (0.0-0.4); Lymphocytes Absolute Auto 1.4 X10*3/uL (1.2-4.9); Lymphocytes Percent Auto 16.4 % (20-40); Mean Corpuscular HGB Conc 34.6 g/dl (31.0-35.0); Mean Corpuscular Hemoglobin 29.7 pg (27.0-33.0); Mean Corpuscular Volume 85.7 fL (80-98); Mean Platelet Volume 8.9 fL (9.4-12.3); Monocytes Absolute Auto 0.7 X10*3/uL (0.1-1.2); Monocytes Percent Auto 8.3 % (2-11); Neutrophils Absolute Auto 6.5 X10*3/uL (2.0-8.3); Neutrophils Percent Auto 74.7 % (45-73); Platelet Count 242 X10*3/uL (160-400); Red Blood Count 3.64 X10*6/uL (4.20-5.50); Red Cell Distribution Width 13.2 % (11.0-16.0); White Blood Count 8.6 X10*3/uL (4.8-10.8)
[2020-12-28 06:23] LABS: Anion Gap 13 (12-20); Blood Urea Nitrogen 11 mg/dL (9-16); Calcium 9.1 mg/dL (8.4-10.2); Carbon Dioxide 27 mmol/L (22-29); Chloride 103 mmol/L (96-108); Creatinine Clr Calc Pharmacy 79.7; Estimated Glomerular Filt Rate > 60; Glucose Random 137 mg/dL (60-115); Potassium 4.2 mmol/L (3.3-5.1); Sodium 139 mmol/L (135-145)
[2020-12-28 06:51] LABS: Glucose, Whole Blood 119 mg/dL (60-115)
[2020-12-28 07:45] VITALS: BP 155/91; PULSE 71; RESP 17; TEMP 37.1; O2SAT 98
--- NOTE | 2020-12-28 11:39 | HO.POSTANES ---
Post Anesthesia Evaluation Post Anesthesia Evaluation Vital Signs: Vital Signs Temp Pulse Resp BP Pulse Ox 12/28/20 07:45 98.7 F 71 17 155/91 H 98 12/28/20 03:07 97.4 F 73 16 126/80 97 Anesthesia: General Endotracheal-GETA Mental Status: Awake Pain Control: Satisfactory Nausea/Vomiting: None Hydration: Adequate Anesthesia-Related Issues: No Anes. Related Issues
== END 2020-12-28 08:50 | disposition home or self-care (01) | DRG 403 ==
LOC: HO.SSSA 10:49 → HO.S3 11:36
PROVIDERS: Nurse Practitioner; Physician Assistant; Admitting Provider Surgery; PCP Internal Medicine; Visit Provider Surgery
PROC: 0DB64Z3 Excision of Stomach, Percutaneous Endoscopic Approach, Vertical (ICD-10-PCS; CPT 43845; principal; 2020-12-27 07:30)
DX: E66.01 Morbid (severe) obesity due to excess calories (principal); K74.00 Hepatic fibrosis, unspecified; K44.0 Diaphragmatic hernia with obstruction, without gangrene; E78.5 Hyperlipidemia, unspecified; G47.30 Sleep apnea, unspecified; I10 Essential (primary) hypertension; E11.9 Type 2 diabetes mellitus without complications; G47.00 Insomnia, unspecified; K66.0 Peritoneal adhesions (postprocedural) (postinfection); F32.9 Major depressive disorder, single episode, unspecified; K76.0 Fatty (change of) liver, not elsewhere classified; Z68.37 Body mass index [BMI] 37.0-37.9, adult; Z99.89 Dependence on other enabling machines and devices; Z79.82 Long term (current) use of aspirin; Z79.84 Long term (current) use of oral hypoglycemic drugs; Z79.899 Other long term (current) drug therapy
CPT/HCPCS: 36415; 80048; 80053; 80061; 81025; 82947; 83036; 83525; 84443; 85014; 85018; 85025; 85610; 85730; 86140; 86850; 86900; 86901; 87635; 88307; 88342; 99024; A4649; J0131; J0690; J1100; J1170; J2250; J2370; J2405; J3010

== ENCOUNTER → 2021-01-02 07:31 | Outpatient (BNVA) | payer OTHER, SELFPAY | PROVIDERS: PCP Internal Medicine; Visit Provider Surgery | DX: E66.9 Obesity, unspecified (principal); Z68.36 Body mass index [BMI] 36.0-36.9, adult | CPT/HCPCS: 99212 ==

== ENCOUNTER → 2021-02-01 07:22 | Outpatient (BNVA) | payer OTHER, SELFPAY | PROVIDERS: PCP Internal Medicine; Visit Provider Surgery | DX: E66.9 Obesity, unspecified (principal); Z68.33 Body mass index [BMI] 33.0-33.9, adult | CPT/HCPCS: 99212 ==

== ENCOUNTER → 2021-05-22 08:06 | Outpatient (BNVA) | payer OTHER, SELFPAY | PROVIDERS: PCP Internal Medicine; Visit Provider Surgery ==

== ENCOUNTER → 2021-06-30 14:28 | Outpatient (BNVA) | payer OTHER, SELFPAY | PROVIDERS: PCP Internal Medicine; Visit Provider Physician Assistant Surgical | DX: E66.9 Obesity, unspecified (principal); Z68.34 Body mass index [BMI] 34.0-34.9, adult | CPT/HCPCS: 99212 ==

== ENCOUNTER → 2021-09-06 12:47 | Outpatient (BNVA) | payer OTHER, SELFPAY | PROVIDERS: PCP Internal Medicine; Visit Provider Physician Assistant Surgical | DX: E66.9 Obesity, unspecified (principal); F32.9 Major depressive disorder, single episode, unspecified; Z68.35 Body mass index [BMI] 35.0-35.9, adult | CPT/HCPCS: 99212 ==